=== PATIENT | male | born 1940 | race Caucasian/White ===

== ENCOUNTER → 2025-03-17 10:56 | Outpatient (REF) | payer MEDICARE, SELFPAY | LOC: HWRCS 10:56 | PROVIDERS: ATTENDING PHYSICIAN Internal Medicine Cardiovascular Disease; FAMILY PHYSICIAN Internal Medicine | DX: I48.92 Unspecified atrial flutter (principal); R53.83 Other fatigue; R06.09 Other forms of dyspnea | CPT/HCPCS: 78452; 93017; A9500 ==

== ENCOUNTER 2025-04-18 05:57 | Day surgery (SDC) | payer MEDICARE, SELFPAY ==
[2025-04-09 11:44] VITALS: BMI 28.6
[2025-04-09 11:51] LABS: Hematocrit 41.6 % (39.0-52.0); Hemoglobin 13.5 g/dL (13.0-18.0); Mean Corp Hgb Conc. 32.5 g/dL (33.0-37.0); Mean Corpuscular Volume 93.5 fL (80.0-94.0); Nucleated Red Blood Cells % 0 % (-); Platelet Count 192 10^3/uL (130-400); Red Cell Dist. Width 15.2 % (11.5-14.5)
[2025-04-09 12:10] LABS: INR 1.22; PT 15.9 Sec (11.4-14.6)
[2025-04-09 12:29] LABS: ALT (SGPT) < 10 U/L (0-50); AST (SGOT) 28 U/L (17-59); Albumin 4.4 g/dl (3.5-5.0); Alkaline Phosphatase 96 U/L (38-126); Blood Urea Nitrogen 22 mg/dl (9-20); Calcium 9.3 mg/dl (8.4-10.2); Carbon Dioxide 25 mmol/L (22-30); Chloride 107 mmol/L (98-107); Estimated Creatinine Clearance 44 ml/min; Glucose 93 mg/dl (70-99); Magnesium 2.1 mg/dl (1.6-2.3); Potassium 4.6 mmol/L (3.5-5.1); Sodium 138 mmol/L (135-145); Total Protein 7.8 g/dl (6.3-8.2); eGFR 59.63
[2025-04-18] VITALS (10 sets, daily range): BP systolic 102–142; BP diastolic 69–99; BMI 28.1
[2025-04-18 08:56] LABS: ACT-LR - POC 294 Seconds (116-155)
[2025-04-18 09:18] LABS: ACT-LR - POC 306 Seconds (116-155)
--- NOTE | 2025-04-18 09:55 | ITS.CL.ABL ---
Energy Management Specialist - Ablation
Ablation
Procedure Report:
ELECTROPHYSIOLOGY ABLATION STUDY
DATE:: April 18, 2025�����������������������������REFERRING: Dr. Will Macias
INDICATION: Persistent supraventricular tachycardia in the form of atrial fibrillation.��Prior PVI with 20 mm cryoballoon in 2018 along with CTI flutter ablation at that time
HISTORY: See H and P.��Recurrent atrial fibrillation with ongoing symptoms of dyspnea
ANTIARRHYTHMIC DRUG: History of sotalol use but could not tolerate and is currently on diltiazem
PRE-PROCEDURE JESSICA: No intracardiac thrombus
PRESENTING RHYTHM: Atrial fibrillation
'TIME-OUT':��called and confirmed.
SEDATION/ANESTHESIA:��provided via the anesthesia department using general anesthesia (LMA).
INTRAVENOUS/ARTERIAL ACCESS:
Right femoral venous - 8Fr
Left femoral venous - 8 Fr, 6 Fr
[id number] suture and 35 mg of protamine bilaterally
Ultrasound guidance for bilateral femoral vein access was utilized by me to obtain access with demonstration of normal anatomy
CHADS-VASC Score:
HAS-Bled Score
PROCEDURE:
1.��A decapolar CS catheter was placed within the CS for mapping and pacing.��This was also used as the reference catheter for the 3-D map. The patient presented in atrial fibrillation so we performed transseptal puncture as below and performed PVI
and substrate modification of the left atrium. We also performed mitral flutter ablation. The patient was inducible after these lesions for a 390 ms tachycardia with an eccentric CS activation earliest at distal CS to mid CS. Interestingly the
left atrium activated passively and post pacing intervals were all long from the left atrium. Interestingly the proximal and distal coronary sinus were 30 ms PPI greater than tachycardia cycle length and as such it appeared that the left atrium was
activating passively from a right atrial circuit. When we withdrew the lattice catheter to the right atrium the entire cycle length of the tachycardia came from the right atrium with a mid diastolic signal from the mid to distal CTI towards the IVC
with PPI equal to tachycardia cycle length. 1 lesion at the mid diastolic signal terminated tachycardia and PFA lesions were given from the mid CTI back towards the IVC. We then confirmed bidirectional block 184 ms bilaterally with pacing from
both sides of the line.
2. The intracardiac ultrasound catheter was positioned in the RA to identify the FO for targeting of transseptal puncture, assist��in identification of the pulmonary vein ostia, monitoring pre and post ablation pulmonary vein flow velocities,
monitoring for 'bubble' formation during RF application as a sign of thermal injury,��and to monitor for pericardial effusion during mapping and ablation procedure.���Left atrial size, LV ejection fraction, and pulmonary vein flows were monitored
pre and post ablation procedure. The other valves were inspected and found to be free of significant regurgitation or stenosis. Intracardiac ultrasound reflected biatrial enlargement with moderate LVH and normal ejection fraction without
pericardial effusion pre and post procedure.
3.��Half of the calculated heparin bolus was administered prior to the first transeptal puncture.��Transseptal puncture was performed to diagnose RA and LA pressure so that safetey of LA mapping and ablation could be further assessed, and to access
the left atrium and pulmonary veins for mapping and ablation.��This entailed advancing an 8 Fr SL-1 sheath with dilator into the superior vena cava and withdrawing both (monitoring intracardiac ultrasound, fluoroscopy and tip pressure) with the tip
oriented toward the atrial septum.��The fossa ovalis was engaged (indicated by sudden displacement of the sheath tip as well as tenting of the fossa seen on intracardiac ultrasound).��Left atrial access required a pass with the Brockenbrough needle
extended.��Left atrial catheter position was confirmed by pressure monitoring (RA mean pressure 8 mm Hg and LA mean presure 21 mm Hg), LA saturation (99%),��as well as fluoroscopy.��The sheath was advanced over the dilator and positioned in the left
atrium.��This procedure was repeated for the Agilis sheath.��The remainder of the calculated heparin bolus was administered and heparin was
infused to maintain ACT at 300 -350 seconds throughout the case.
4.��RA pacing was performed via the proximal decapolar poles and LA pacing was performed via the distal decapolr poles.
5. A quadrapolar catheter was first positioned at the His position for His Bundle recording which was tagged via the 3-D Navex sytem, and then passed to the RVA for RV pacing and recording.
6. The ablation catheter was positioned through one of the transeptal seaths and a 20 pole ring mapping catheter was positioned through the second seath into the LA and then the ostia of the LIPV, LSPV, RSPV and the RIPV.��
7.��Next, a 3-D map was created using Navex.���A 3-D reconstructed CT image was compared to the 3-D Navex map to assist in anatomic interpretation, mapping and ablation.��The CT image and the NavX image were fused.
8. The 9 mm lattice catheter reisolation the left inferior pulmonary vein and the inferior and anterior portion. Additional lesions were given in the ligament of Salo on the left atrial appendage side. We then performed a posterior wall box
lesion set with roof and floor lines as well as targeting some posterior wall substrate. We also targeted substrate on the LA floor and a mitral flutter line was fashion from the left inferior pulmonary vein to the lateral mitral annulus. Near the
AV groove RF lesions were given at 400 W for 5 seconds and from the mid isthmus back to left inferior pulmonary vein PFA lesions were given. There was no focal regional wall motion abnormality after PFA lesions at the AV rings. A-fib persisted so
we converted the patient to sinus rhythm and performed EPS which demonstrated inducible CTI flutter at 390 ms breaking through the middle of the CTI at the area of prior ablation. After termination of the CTI flutter the patient was no longer
inducible for any tachyarrhythmia.
9. An RF line was also placed at the IVC-TVA isthmus to interupt the potential typical atrial flutter circuit.��At the end of RF at this site, pacing from the lateral side of the line and the medial side of the line was performed to evaluate for
bidirectional block with intra isthmus conduction time of 184 ms..
TOTAL FLOURO TIME: 11.1 minutes
TOTAL RF DURATION: 1 minutes
REVERSAL OF HEPARIN: 35 mg of protamine, slow IV administration
COMPLICATIONS:
None
Intracardiac US shows no pericardial effusion post ablation.
SUMMARY:��
Complex left atrial mapping and ablation.
Reisolation of left inferior pulmonary vein, posterior wall box lesion set with roof floor line and posterior wall ablation. Mitral flutter ablation with a lateral mitral isthmus line. A-fib persisted through the posterior wall box lesion set and
the reisolation of left inferior pulmonary vein and the patient was cardioverted to sinus rhythm with the mitral flutter ablation as above and then repeat CTI ablation for inducible slow CTI flutter. Persistent bidirectional block 184 ms
bidirectionally. Progressive biatrial enlargement from 1400-6519 with moderate LVH raises the diagnostic possibility of restrictive cardiomyopathy such as amyloid.
RECOMMENDATIONS:
1. Lasix 20 mg IV x 1 now and 20 mg p.o. Lasix for 5 days
2. Resume anticoagulation
3.��Low-dose Cardizem
4.� Can consider same-day discharge. Discussed plan of care in detail with Dr. Macias as outpatient cargo worker and we can consider workup for restrictive myopathy as an outpatient
Copy to: Dr. Will Macias
[2025-04-18] MEDS: LASIX 20 MG IV (12:56)
--- NOTE | 2025-04-18 14:40 | W.PN.UPDATE ---
Update Note
Progress Note Update
Pt seen post PFA. Bilateral femoral groin sites without ht/bleeding, non tender. OOB ambulating, urinating without difficulty. Post EKG NSR 75, no acute changes. Resume Eliquis tonight at usual time. Lasix 20mg IV given with good urine output, will
go home on lasix 20mg po daily for 5 days, then stop with a followup BMP in 5 days. Plan is for outpt workup for Cardiac Amyloid, and initial routine urine and serum SARATH labs sent. Followup with Dr. Macias as scheduled, home today if groin site/tele
remain stable.
== END 2025-04-18 15:05 | disposition home or self-care (01) ==
LOC: CATH 05:57
PROVIDERS: Nurse Practitioner; ATTENDING PHYSICIAN Internal Medicine Cardiovascular Disease; FAMILY PHYSICIAN Internal Medicine; OTHER PHYSICIAN Internal Medicine Interventional Cardiology
DX: I48.19 Other persistent atrial fibrillation (principal); G47.33 Obstructive sleep apnea (adult) (pediatric); H40.9 Unspecified glaucoma; I47.10 Supraventricular tachycardia, unspecified; I48.92 Unspecified atrial flutter; K90.0 Celiac disease; M19.90 Unspecified osteoarthritis, unspecified site; Z79.01 Long term (current) use of anticoagulants; Z79.899 Other long term (current) drug therapy; Z86.718 Personal history of other venous thrombosis and embolism; Z87.11 Personal history of peptic ulcer disease; Z87.891 Personal history of nicotine dependence; Z96.653 Presence of artificial knee joint, bilateral
CPT/HCPCS: C1733; C1894; C1730; C1766; C1892; C1759; 36415; 80053; 82784; 83520; 83521; 83735; 84155; 84156; 84165; 85025; 85347; 85610; 86334; 86335; 86850; 86900; 86901; 93005; 93655; 93656; 93657

== ENCOUNTER 2025-06-02 09:24 | Inpatient (IN) | payer MEDICARE, SELFPAY ==
--- NOTE | 2025-05-30 13:54 | HPS.HSE ---
Addendum entered and electronically signed by Deepak Sargent MD 06/02/25 14:23:
84-year-old man with a history of CTI flutter ablation in 2012, more recently a PVI in April 2025, now with atypical atrial flutter, admitted now for dofetilide loading
PMH: As above, obstructive sleep apnea, remote provoked DVT of right lower extremity, osteoarthritis, glaucoma, celiac disease, peptic ulcer disease, GERD
Medications: Reviewed
Rest of history as below per Taisha Kilpatrick, reviewed in detail and agree, unless otherwise specified
142/92, pulse 64, respiratory rate 16, afebrile, sats are 97%, pleasant, no distress, head neck exam unremarkable, lungs are clear, regular rate and rhythm without obvious murmurs or gallops, abdomen benign extremities without clubbing cyanosis or
edema
ECG atypical atrial flutter, 4:1 conduction, normal QT interval
Labs reviewed, unremarkable
Impression:
Atypical atrial flutter with 4:1 conduction status post PVI 04/18/2025
CTI flutter ablation 2012
Remote DVT
Obstructive sleep apnea
Celiac disease
GERD/remote peptic ulcer disease
Plan:
Dofetilide loading with cardioversion July 04
Original Note:
Family Physician
-
Family Physician: Deepak Luis MD
Chief Complaint
-
Rate controlled aflutter s/p ablation
-Tikosyn loading.
History of Present Illness
84yo male with atrial fibrillation/atrial flutter, who has undergone prior
cardioversion as well as PVI, typical CTI flutter ablation in 2012.
He failed to maintain long-term sinus rhythm. His symptoms include
fatigue and dyspnea on exertion and are increasing in intensity and
duration. He is presently anticoagulated with Eliquis and was
maintained on diltiazem. He had an implanted LINQ recorder April
2023. This picked up atrial fibrillation at that time, he was
on sotalol, which was increased to 120 mg b.i.d. dosing. He was
cardioverted 04/29/2024. Sotalol was then discontinued due to
inefficacy and felt to be contributing to his shortness of breath.
LINQ recorder determined 57% AFib, Aflutter burden.
He has undergone recent Ep study with fib/flutter ablation 04/18/2025
but presents again with aflutter which is rate controlled.
We will proceed with Tikosyn loading.
His [id number] score is 2 secondary to age.
Medical History
Past Medical History
Past Medical History: Reports Other (see below:)
Additional Past Medical History:
1. Persistent symptomatic atrial fibrillation/Aflutter.
2. Obstructive sleep apnea, mild, uses no device.
3. DVT RLE, provoked, >10yrs..
4. Osteoarthritis.
5. Glaucoma.
6. Celiac disease.
7. History of remote gastric ulcer.
8. GERD.
Past Surgical History: Reports Other (see below:)
Additional Past Surgical History:
EP study fib/flutter ablation 04/18/2025,
Cardioversion 06/27/2024 ATC,
PVI with typical CTI and flutter ablation 2018, Dr. Staples, left
and right knee meniscectomy, left knee hemiarthroplasty, left total
knee arthroplasty, right inguinal hernia repair.
.
Social History
Tobacco: Former Smoker
Alcohol: Daily (1 wine)
Personal:
Living: With Family
Family History
Family History: Not pertinent
Allergies / Home Medications
Allergy/Medication List:
Allergies:
NKDA
Home Medications:
1. Eliquis 5 mg b.i.d.
2. Prilosec 40 mg daily.
3 Timolol ophthalmic solution
Review of Systems
-
A 12 point ROS was completed and negative except as noted: Yes
Physical Exam
Physical Exam
General: Well Developed and Well Nourished
HEENT: NormoCephalic
Respiratory: Clear
Cardiac: Irregular Rhythm
GI: Soft and Normal Bowel Sounds
Musculoskeletal: Normal Gait & Station
Neuro: AO x 3 and Cranial Nerves Intact
Impression/Plan
-
IMPRESSION/PLAN:
Tikosyn loading.
[2025-06-02 09:42] VITALS: BMI 28.2
[2025-06-02 09:50] VITALS: BP 161/86
[2025-06-02 10:02] VITALS: BMI 28.2
[2025-06-02] MEDS: PROTONIX PO (10:08)
[2025-06-02] MEDS: ELIQUIS PO (10:08)
[2025-06-02 10:56] LABS: Blood Urea Nitrogen 21 mg/dl (9-20); Calcium 8.6 mg/dl (8.4-10.2); Carbon Dioxide 24 mmol/L (22-30); Chloride 110 mmol/L (98-107); Estimated Creatinine Clearance 55 ml/min; Glucose 83 mg/dl (70-99); Magnesium 2.0 mg/dl (1.6-2.3); Potassium 4.6 mmol/L (3.5-5.1); Sodium 139 mmol/L (135-145); eGFR > 60.00
[2025-06-02 11:03] LABS: Hematocrit 38.1 % (39.0-52.0); Hemoglobin 13.0 g/dL (13.0-18.0); Mean Corp Hgb Conc. 34.1 g/dL (33.0-37.0); Mean Corpuscular Volume 94.1 fL (80.0-94.0); Platelet Count 173 10^3/uL (130-400); Red Cell Dist. Width 14.6 % (11.5-14.5)
--- NOTE | 2025-06-02 11:21 | W.CARD.TIKOS ---
Initiate Tikosyn
-
I verify that the patient has not taken any verapamil (Isoptin/Calan), ketoconazole (Nizoral), cimetidine (Tagamet), trimethoprim (Trimpex), trimethoprim/sulfamethoxazole (Bactrim), megesterol (Megace), prochlorperazine (Compazine),
hydrochlorothiazide (HCTZ), dolutegravir (Tivicay) or any Class I or Class III anti-arrhythmic within the last three days
AND
I verify that the patient has not taken amiodarone within the last THREE months, or that the patient's amiodarone plasma concentration is <0.3 mcg/mL.
Creatinine 1.0 mg/dL (0.7-1.3) 06/02/25 10:30
Estimated Creat Clear 55 ml/min 06/02/25 10:30
calculated creatinine clearance: 66.8
Does patient have a Ventricular Conduction Abnormality: No
I have assessed the baseline QTc interval (using QT for heart rate less than 60 bpm) and deemed the patient is appropriate for Dofetilide therapy. I understand that Tikosyn is contraindicated if the QTc is >440msec (500msec in patients with
ventricular conduction abnormalities).
Baseline QTc (in msec): 436
QTc interval is greater than 440msec without conduction abnormality OR greater than 500msec with a conduction abnormality, but acceptable to proceed per Cardiology attending.
Ordering Physician: Deepak Sargent
[2025-06-02 11:25] VITALS: BP 147/102
--- NOTE | 2025-06-02 11:25 | PTCARENOTE ---
Patient received as direct admit for Tikosyn loading. The patient is AOx3, denies pain. Ambulating independently in the room. Ht/wt obtained, admission questions completed, and home medication list updated. Left wrist 22G PIV inserted. Labs drawn
and sent. Cardiology DRAW HAND in to see patient. The patient and spouse were oriented to the room and unit. Call mckenzie within reach. Care ongoing.
[2025-06-02 11:28] VITALS: BP 142/92
--- NOTE | 2025-06-02 11:40 | W.PN.CARDCBS ---
Today's Communication / Plan
-
Tikosyn loading
EKG monitoring for QTc
Impression / Plan
-
PCP: Easton Luis MD
Primary motorcycle subassembler: Sonu Macias
Impression:
Rate controlled persistent atrial flutter status post PVI on 04/18/2025, cardioversion 06/27/2024, typical CTI flutter ablation 2012
Atrial fibrillation status post PVI, also with mitral flutter ablation with lateral mitral isthmus line and repeat CTI ablation on 04/18/2025
Previously on sotalol for atrial fibrillation while in [place] in 2022
Obstructive sleep apnea, mild, uses no device
Right lower extremity DVT, provoked, greater than 10 years ago
Celiac disease
Osteoarthritis
GERD
Remote gastric ulcer glaucoma
Dyspnea on exertion
Previous cardiovascular testing:
JESSICA 02/13/2018: EF 50%, normal RV size and function, mild to moderate MR, mild to moderate TR
Plan:
84-year-old male with recurrent atrial flutter with controlled ventricular response, status post PVI, mitral flutter ablation and repeat CTI ablation on 04/18/2025, presents now for initiation of antiarrhythmic therapy, Tikosyn loading with QTc
monitoring.
-EKG: Atrial flutter with 41 AV conduction, QTc 436 ms
- Calculated creatinine clearance 66
-K 4.6, mag 2.0. Keep K > 4, mag > 2
-Per EP, start Tikosyn 250 mcg twice daily
-EKG for QTc monitoring 2 hours after each dose
- If he does not chemically convert with initiation of Tikosyn, perform cardioversion prior to discharge, after fifth dose of Tikosyn
-Continue oral anticoagulation with Eliquis 5 mg twice daily
-Continue diltiazem 120 mg daily
-Patient has planned to get dental work next month and typically takes amoxicillin-this antibiotic is okay with Tikosyn., Okay to proceed
-Patient advised to notify provider with any change in medications to avoid taking meds with contraindications with Tikosyn.
Progress Note - Bridge Teacher
Subjective
Date of Service: June 02, 2025
Complaints of shortness of breath when in atrial flutter
No palpitations, lightheadedness
Objective
Labs:
06/02/25 10:30
06/02/25 10:30
Labs
Hgb 13.0 g/dL (13.0-18.0) 06/02/25 10:30
Hct 38.1 % (39.0-52.0) L 06/02/25 10:30
Plt Count 173 10^3/uL (130-400) 06/02/25 10:30
Sodium 139 mmol/L (135-145) 06/02/25 10:30
Potassium 4.6 mmol/L (3.5-5.1) 06/02/25 10:30
BUN 21 mg/dl (9-20) H 06/02/25 10:30
Creatinine 1.0 mg/dL (0.7-1.3) 06/02/25 10:30
Glucose 83 mg/dl (70-99) 06/02/25 10:30
Vital Signs and I&O:
Vital Signs
Temp Pulse Resp BP Pulse Ox
97.7 F 63 16 142/92 97
06/02/25 11:20 06/02/25 11:28 06/02/25 11:20 06/02/25 11:28 06/02/25 11:25
Vital Signs
Temp Pulse Resp BP Pulse Ox
97.7 F 63 16 142/92 97
06/02/25 11:20 06/02/25 11:28 06/02/25 11:20 06/02/25 11:28 06/02/25 11:25
Physical Exam
Physical Exam
GEN: No distress, awake, Ox3
HEENT: supple, anicteric, mmm
LUNGS: CTA, no wheezes/rales
CV: Reg, S1/S2, 1/6 syst LSB
ABD: soft, BS+, NT/ND
EXT: No edema
NEURO: Gross non-focal
SKIN: No rash
[2025-06-02] MEDS: TIKOSYN 250 MCG PO ×2 (12:22→23:04)
[2025-06-02] MEDS: NON-FORMULARY ITEM OPHTH (12:44)
--- NOTE | 2025-06-02 12:46 | CM ---
spoke to pt in room, he is prev indep, lives with his in a 2 story home with 1 step to enter. he has a cane and a walker at home to use if needed. plan is for dc to home when dofetilide loading is complete after 5 doses. cm following and will
check his pharm for avail/cost prior to dc.
--- NOTE | 2025-06-02 13:03 | PTCARENOTE ---
Patient's own Viberzi and eye drops sent to pharmacy to be verified. Medications returned from pharmacy. Discussed with patient that we must scan out and administer medications, pt verbalized understanding
[2025-06-02 15:36] VITALS: BP 125/91
[2025-06-02 18:57] VITALS: BP 102/91
[2025-06-02] MEDS: NON-FORMULARY ITEM 1 DROP OPHTH ×2 (19:13→23:05)
[2025-06-02] MEDS: ELIQUIS 5 MG PO (19:16)
[2025-06-02 23:03] VITALS: BP 127/77
[2025-06-03] VITALS (10 sets, daily range): BP systolic 126–158; BP diastolic 80–116
--- NOTE | 2025-06-03 01:55 | PTCARENOTE ---
2nd dose of Tikosyn administered, QTc 425. Tele remains Aflutter, HR in the 60-70's. Patient denies any chest discomfort. Ambulates self in room. Call mckenzie in reach.
[2025-06-03 06:03] LABS: Blood Urea Nitrogen 19 mg/dl (9-20); Calcium 8.7 mg/dl (8.4-10.2); Carbon Dioxide 25 mmol/L (22-30); Chloride 108 mmol/L (98-107); Estimated Creatinine Clearance 55 ml/min; Glucose 90 mg/dl (70-99); Magnesium 2.0 mg/dl (1.6-2.3); Potassium 4.3 mmol/L (3.5-5.1); Sodium 137 mmol/L (135-145); eGFR > 60.00
[2025-06-03] MEDS: PROTONIX 40 MG PO (08:06)
[2025-06-03] MEDS: CARDIZEM CD 120 MG PO (08:06)
[2025-06-03] MEDS: NON-FORMULARY ITEM 100 MG PO (08:12)
[2025-06-03] MEDS: MAGNESIUM OXIDE 400 MG PO (08:12)
[2025-06-03] MEDS: ELIQUIS 5 MG PO ×2 (08:12→19:48)
[2025-06-03] MEDS: NON-FORMULARY ITEM 1 DROP OPHTH ×3 (08:13→21:06)
[2025-06-03] MEDS: FLUSH (NSS) 1 FLUSH IV (08:14)
[2025-06-03] MEDS: TIKOSYN 250 MCG PO ×2 (10:04→21:06)
--- NOTE | 2025-06-03 11:30 | PTCARENOTE ---
received patient this am, sitting in bed eating breakfast. monitor shows Aflutter, BP high will continue to monitor. patient on dose 3 of Tikosyn, EKG will be obtained at 1215 to monitor QTC.
--- NOTE | 2025-06-03 11:31 | W.PN.CARDCBS ---
Addendum entered and electronically signed by Alfonso Staples MD 06/03/25 12:48:
Patient seen and examined
Agree with RICCARDO Lynch's note and assessment
Agree with RICCARDO Lynch's plan
I interviewed the patient in the front family waiting area of the eye view as he was enjoying the morning sunrise.
Reviewed his ECGs with stable QTc on day 2 of dofetilide
Exam:
JVP 6
Alert and O x 3
Nonfocal neurologically
Cor regular in an atypical flutter without murmur
Lungs clear
Abdomen nondistended
No significant extremity edema
PCP: Easton Luis MD
Primary overnight cashier: Sonu Macias
Impression:
Rate controlled persistent atrial flutter status post PVI on 04/18/2025, cardioversion 06/27/2024, typical CTI flutter ablation 2012
Atrial fibrillation status post PVI, also with mitral flutter ablation with lateral mitral isthmus line and repeat CTI ablation on 04/18/2025
Previously on sotalol for atrial fibrillation while in [place] in 2022
Obstructive sleep apnea, mild, uses no device
Right lower extremity DVT, provoked, greater than 10 years ago
Celiac disease
Osteoarthritis
GERD
Remote gastric ulcer glaucoma
Dyspnea on exertion
Previous cardiovascular testing:
JESSICA 02/13/2018: EF 50%, normal RV size and function, mild to moderate MR, mild to moderate TR
Plan:
84-year-old male with recurrent atrial flutter with controlled ventricular response, status post PVI, mitral flutter ablation and repeat CTI ablation on 04/18/2025, presents now for initiation of antiarrhythmic therapy, Tikosyn loading with QTc
monitoring.
-remains in aflutter, rate controlled. QTc ok by review of EKG. continue tikosyn 250mcg Q12H
-NPO after midnight for CV in AM if remains in afib
-Continue oral anticoagulation with Eliquis 5 mg twice daily
-Continue diltiazem 120 mg daily
-Patient has planned to get dental work next month and typically takes amoxicillin-this antibiotic is okay with Tikosyn.
-Patient advised to notify provider with any change in medications to avoid taking meds with contraindications with Tikosyn.
-plan for DC to home in AM
Original Note:
Today's Communication / Plan
-
Continue Tikosyn 250 mcg Q12H
Follow QTc by EKG
N.p.o. for cardioversion in a.m. if remains in a flutter
Continue Eliquis, Cardizem
Impression / Plan
-
PCP: Easton Luis MD
Primary overnight cashier: Sonu Macias
Impression:
Rate controlled persistent atrial flutter status post PVI on 04/18/2025, cardioversion 06/27/2024, typical CTI flutter ablation 2012
Atrial fibrillation status post PVI, also with mitral flutter ablation with lateral mitral isthmus line and repeat CTI ablation on 04/18/2025
Previously on sotalol for atrial fibrillation while in [place] in 2022
Obstructive sleep apnea, mild, uses no device
Right lower extremity DVT, provoked, greater than 10 years ago
Celiac disease
Osteoarthritis
GERD
Remote gastric ulcer glaucoma
Dyspnea on exertion
Previous cardiovascular testing:
JESSICA 02/13/2018: EF 50%, normal RV size and function, mild to moderate MR, mild to moderate TR
Plan:
84-year-old male with recurrent atrial flutter with controlled ventricular response, status post PVI, mitral flutter ablation and repeat CTI ablation on 04/18/2025, presents now for initiation of antiarrhythmic therapy, Tikosyn loading with QTc
monitoring.
-remains in aflutter, rate controlled. QTc ok by review of EKG. continue tikosyn 250mcg Q12H
-NPO after midnight for CV in AM if remains in afib
-Continue oral anticoagulation with Eliquis 5 mg twice daily
-Continue diltiazem 120 mg daily
-Patient has planned to get dental work next month and typically takes amoxicillin-this antibiotic is okay with Tikosyn.
-Patient advised to notify provider with any change in medications to avoid taking meds with contraindications with Tikosyn.
-plan for DC to home in AM
Progress Note - Learning Operations Specialist
Subjective
Date of Service: June 03, 2025
No issues or complaints
Objective
Labs:
06/02/25 10:30
06/03/25 05:15
Labs
Hgb 13.0 g/dL (13.0-18.0) 06/02/25 10:30
Hct 38.1 % (39.0-52.0) L 06/02/25 10:30
Plt Count 173 10^3/uL (130-400) 06/02/25 10:30
Sodium 137 mmol/L (135-145) 06/03/25 05:15
Potassium 4.3 mmol/L (3.5-5.1) 06/03/25 05:15
BUN 19 mg/dl (9-20) 06/03/25 05:15
Creatinine 1.0 mg/dL (0.7-1.3) 06/03/25 05:15
Glucose 90 mg/dl (70-99) 06/03/25 05:15
Vital Signs and I&O:
Vital Signs
Temp Pulse Resp BP Pulse Ox
97.9 F 71 16 158/102 99
06/03/25 10:55 06/03/25 10:55 06/03/25 10:55 06/03/25 08:18 06/03/25 10:55
Vital Signs
Temp Pulse Resp BP Pulse Ox
97.9 F 71 16 158/102 99
06/03/25 10:55 06/03/25 10:55 06/03/25 10:55 06/03/25 08:18 06/03/25 10:55
Intake & Output
06/01/25 06/02/25 06/03/25 06/04/25
07:59 07:59 07:59 07:59
Intake Total 240 / 240
Balance 240 / 240
Physical Exam
Physical Exam
GEN: No distress, awake, alert, oriented x3
HEENT: supple, anicteric, mmm, EOMI
LUNGS: CTA bilaterally, no wheezes/rales
CV: Irreg, S1/S2, no murmur
ABD: soft, BS+, NT/ND
EXT: No cyanosis, clubbing, edema
NEURO: Gross non-focal
SKIN: Warm, pink, dry. No rash
--- NOTE | 2025-06-03 15:14 | CM ---
Priced Dofetilide 250mcg BID at patient's [facility] pharmacy, 30 day BID supply is $0 and pharmacy has med in stock. Discussed that patient will have his deductible reset in July.
--- NOTE | 2025-06-04 01:07 | PTCARENOTE ---
4th dose of Tikosyn administered, EKG obtained 2hrs post. Qtc 477, remains Atrial flutter. Patient aware to maintain NPO status for scheduled cardioversion on 06/04. Denies any pain, aware of POC. Call mckenzie in reach.
[2025-06-04 04:34] VITALS: BP 144/83
[2025-06-04 05:27] LABS: Blood Urea Nitrogen 18 mg/dl (9-20); Calcium 8.7 mg/dl (8.4-10.2); Carbon Dioxide 27 mmol/L (22-30); Chloride 106 mmol/L (98-107); Estimated Creatinine Clearance 55 ml/min; Glucose 91 mg/dl (70-99); Magnesium 2.1 mg/dl (1.6-2.3); Potassium 4.2 mmol/L (3.5-5.1); Sodium 136 mmol/L (135-145); eGFR > 60.00
[2025-06-04 07:56] VITALS: BP 149/96
--- NOTE | 2025-06-04 08:00 | PTCARENOTE ---
Received pt from restaurant shift leader staff, A-fib on the monitor, VSS, Tikosyn dose number 5 due today and pt in for a cardioversion.
[2025-06-04] MEDS: CARDIZEM CD 120 MG PO (08:49)
[2025-06-04] MEDS: NON-FORMULARY ITEM 1 DROP OPHTH (08:50)
[2025-06-04] MEDS: ELIQUIS 5 MG PO (08:52)
[2025-06-04] MEDS: PROTONIX 40 MG PO (08:52)
[2025-06-04] MEDS: MAGNESIUM OXIDE 400 MG PO (08:52)
[2025-06-04] MEDS: TIKOSYN 250 MCG PO (08:52)
[2025-06-04] MEDS: NON-FORMULARY ITEM 100 MG PO (08:52)
[2025-06-04 11:42] VITALS: BP 141/97
[2025-06-04 11:47] VITALS: BP 141/97
[2025-06-04 11:56] VITALS: BP 150/101
--- NOTE | 2025-06-04 12:20 | W.PN.CARDCBS ---
Addendum entered and electronically signed by Deepak Sargent MD 06/04/25 18:52:
84-year-old man admitted for dofetilide loading. History of CTI flutter ablation 2012 and a PVI in April 2025
PMH: As above, plus obstructive sleep apnea, remote provoked DVT, osteoarthritis, glaucoma, celiac disease, peptic ulcer disease, GERD
Current meds: Apixaban 5 mg twice daily pantoprazole 40 mg a day, diltiazem CD120 daily, Viberzi, Lumigan
144/83, pulse 82, respiratory rate 18, pleasant, lungs clear, irregular rate and rhythm, abdomen benign extremities without clubbing cyanosis or edema
ECG last night, atrial flutter with variable conduction, QTc okay
BUN and creatinine are 18 and 1 with potassium 4.2
Impression:
Atypical atrial flutter following PVI April 2025
Otherwise as per Zoë Lynch below. Reviewed in detail and agree unless otherwise specified.
Plan:
Ironically, he failed cardioversion x 3 and then spontaneously reverted to sinus rhythm. Okay for discharge on dofetilide
Patient to follow-up to [facility] cardiology.
Original Note:
Today's Communication / Plan
-
now in SR
continue tikosyn 250mcg Q12H
continue cardizem cd 120mg daily
continue eliquis
lasix 20mg daily added to regimen
BMP in 1 week
DC today
follow up upon return from [place]
Impression / Plan
-
PCP: Easton Luis MD
Primary rf engineer: Sonu Macias
Impression:
Rate controlled persistent atrial flutter status post PVI on 04/18/2025, cardioversion 06/27/2024, typical CTI flutter ablation 2012
Atrial fibrillation status post PVI, also with mitral flutter ablation with lateral mitral isthmus line and repeat CTI ablation on 04/18/2025
Previously on sotalol for atrial fibrillation while in [place] in 2022
Obstructive sleep apnea, mild, uses no device
Right lower extremity DVT, provoked, greater than 10 years ago
Celiac disease
Osteoarthritis
GERD
Remote gastric ulcer glaucoma
Dyspnea on exertion
Previous cardiovascular testing:
JESSICA 02/13/2018: EF 50%, normal RV size and function, mild to moderate MR, mild to moderate TR
Plan:
84-year-old male with recurrent atrial flutter with controlled ventricular response, status post PVI, mitral flutter ablation and repeat CTI ablation on 04/18/2025, presents now for initiation of antiarrhythmic therapy, Tikosyn loading with QTc
monitoring.
- He underwent attempted cardioversion x 3 earlier this morning which was unsuccessful, however then when I was in room, patient appeared to be back in sinus, which was then confirmed by EKG
- Continue Tikosyn 250 mcg every 12 hours. QTc stable
-Continue oral anticoagulation with Eliquis 5 mg twice daily
-Continue diltiazem 120 mg daily
-Will add Lasix 20 mg daily. check BMP in 1 week
-Patient has planned to get dental work next month and typically takes amoxicillin-this antibiotic is okay with Tikosyn.
-Patient advised to notify provider with any change in medications to avoid taking meds with contraindications with Tikosyn.
-plan for DC to home today. he leaves for [place] on Saturday 06/09 and stays until November. He has rf engineer in [place] if care is needed while there
-d/w nursing, EP, primary rf engineer
dictation# [id number]
Progress Note - Jewelry Racker
Subjective
Date of Service: June 04, 2025
feeling well. eager for DC
Objective
Labs:
06/02/25 10:30
06/04/25 04:40
Labs
Hgb 13.0 g/dL (13.0-18.0) 06/02/25 10:30
Hct 38.1 % (39.0-52.0) L 06/02/25 10:30
Plt Count 173 10^3/uL (130-400) 06/02/25 10:30
Sodium 136 mmol/L (135-145) 06/04/25 04:40
Potassium 4.2 mmol/L (3.5-5.1) 06/04/25 04:40
BUN 18 mg/dl (9-20) 06/04/25 04:40
Creatinine 1.0 mg/dL (0.7-1.3) 06/04/25 04:40
Glucose 91 mg/dl (70-99) 06/04/25 04:40
Vital Signs and I&O:
Vital Signs
Temp Pulse Resp BP Pulse Ox
98.2 F 76 18 141/97 96
06/04/25 11:47 06/04/25 11:47 06/04/25 11:47 06/04/25 11:47 06/04/25 11:47
Vital Signs
Temp Pulse Resp BP Pulse Ox
98.2 F 76 18 141/97 96
06/04/25 11:47 06/04/25 11:47 06/04/25 11:47 06/04/25 11:47 06/04/25 11:47
Intake & Output
06/02/25 06/03/25 06/04/25 06/05/25
07:59 07:59 07:59 07:59
Intake Total 240 / 240 360 / 360
Balance 240 / 240 360 / 360
Physical Exam
Physical Exam
GEN: No distress, awake, alert, oriented x3
HEENT: supple, anicteric, mmm, eomi
LUNGS: CTA B/L, no wheezes/rales
CV: Reg, S1/S2, no murmur
ABD: soft, BS+, NT/ND
EXT: No cyanosis, clubbing, edema
NEURO: Gross non-focal
SKIN: Warm, pink, dry. No rash
--- NOTE | 2025-06-04 12:22 | PTCARENOTE ---
patient arrived back from unit with an unsuccessful CV X 3 shocks. when in room noticed patient in NSR, Zoë Lynch PHARMACEUTICAL PLANT OPERATOR in room , we obtained an EKG, NSR.
--- NOTE | 2025-06-04 12:27 | W.DS.TRANS ---
DC Summary - Vendor Management Consultant
-
Discharge Instructions:
Discharge Diagnosis/Procedures aflutter, tikosyn loading, cardioversion
Diet Regular
Activity As tolerated
Driving Restrictions No driving for 24 hours
Blood Work BMP in 1 week
Specialty Instructions Weigh Daily
Instructions: *PCP/Other Stained Glass Painter Heart Failure Instructions
Stand-Alone Forms:
Changes to Home Medications: Yes
Discharge Medications:
DC Medications w/original date entered in [employer]
glucosamin 375 mg-chond 300 mg-collagen 50 mg-hyaluronic acid 2 mg cap 1 cap PO BID Supplement 08/05/14
Jesus Red 1 tab PO QPM Supplement 08/06/14
finasteride 1 mg tablet (Propecia) 0.25 mg PO DAILY Hormonal Agent 08/06/14
dorzolamide 22.3 mg-timolol 6.8 mg/mL eye drops 2 drp ophthalmic (eye) Q12H Eye Condition 02/14/18
apixaban 5 mg tablet (Eliquis) 5 mg PO BID Blood Clot Prevention/Tx 04/10/25
beta carotene 1 cap PO DAILY Supplement 04/10/25
bimatoprost 0.01 % eye drops (Lumigan) 1 drp ophthalmic (eye) HS Eye Condition 04/10/25
diclofenac sodium 75 mg tablet,delayed release 75 mg PO DAILY Anti-Inflammatory 04/10/25
eluxadoline 100 mg tablet (Viberzi) 100 mg PO DAILY Gastrointestinal Issue 04/10/25
magnesium 1 tab PO QPM Supplement 04/10/25
multivitamin 1 tab PO DAILY Supplement 04/10/25
omeprazole 40 mg capsule,delayed release 40 mg PO DAILY Gastrointestinal Issue 04/10/25
diltiazem HCl 120 mg tablet,extended release 24 hr 120 mg PO DAILY Heart Disease/Condition 04/18/25
dofetilide 250 mcg capsule (Tikosyn) 250 mcg PO BID #60 caps 06/03/25
furosemide 20 mg tablet (Lasix) 20 mg PO DAILY #30 tabs 06/04/25
Home Medication Changes
lasix and tikosyn are new
Pending Results: No
[2025-06-04] MEDS: LASIX 20 MG PO (12:32)
--- NOTE | 2025-06-04 14:20 | PTCARENOTE ---
D/C instructions given to patient and , both verbalizes understanding. INT D/C'd, telemetry D/C'd, personal belongings packed and sent home with patient. D/C to home via wc accompanied by staff. Tikosyn given to patient.
== END 2025-06-04 14:22 | disposition home or self-care (01) | DRG 310 ==
LOC: IVU 09:24
PROVIDERS: Internal Medicine Cardiovascular Disease; Nurse Practitioner; ADMITTING PHYSICIAN Internal Medicine Cardiovascular Disease; FAMILY PHYSICIAN Internal Medicine
PROC: 5A2204Z Restoration of Cardiac Rhythm, Single (ICD-10-PCS; 2025-06-04)
DX: I48.4 Atypical atrial flutter (principal); I48.91 Unspecified atrial fibrillation; K21.9 Gastro-esophageal reflux disease without esophagitis; K90.0 Celiac disease; G47.33 Obstructive sleep apnea (adult) (pediatric); Z86.718 Personal history of other venous thrombosis and embolism; Z87.11 Personal history of peptic ulcer disease; Z79.01 Long term (current) use of anticoagulants; Z79.899 Other long term (current) drug therapy; Z87.891 Personal history of nicotine dependence; Z96.652 Presence of left artificial knee joint
CPT/HCPCS: 80048; 83735; 85027; 92960; 93005